=== PATIENT | female | born 1940 | race Caucasian/White ===

== ENCOUNTER 2019-06-28 22:45 | Emergency (ER) | payer MEDICARE ==
[~2019-06-28] VITALS: Ht 160 cm; Wt 47.6 kg
--- NOTE | 2019-06-28 22:51 | NUR ---
LACERATION NOTED ON R HAND. AWAITING MD FOR EVAL.
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
--- NOTE | 2019-06-28 23:02 | NUR ---
AT BED SIDE
[2019-06-28] MEDS ORDERED: KETOROLAC TROMETHAMINE INJ 30 MG/ML VIAL ONE (23:10)
[2019-06-28] MEDS ORDERED: LIDOCAINE 2%-EPI 1:100,000 30 ML VIAL ONE (23:10)
[2019-06-28] MEDS ORDERED: BACI/NEOM/POLY B OINT PKT 1 UDPKT PACKET ONE (23:10)
[2019-06-28] MEDS ORDERED: HYDROCODONE/APAP 5/325MG 1 EACH TABLET ONE (23:11)
--- NOTE | 2019-06-28 23:17 | NUR ---
XRAY AT BEDSIDE
[2019-06-28] MEDS ORDERED: HYDROCODONE/APAP 5/325MG 1 EACH TABLET PO ONE (23:30)
[2019-06-28] MEDS ORDERED: KETOROLAC TROMETHAMINE INJ 30 MG/ML VIAL IM ONE (23:30)
[2019-06-28] MEDS ORDERED: LIDOCAINE 2%-EPI 1:100,000 30 ML VIAL TP ONE (23:30)
[2019-06-28] MEDS ORDERED: BACI/NEOM/POLY B OINT PKT 1 UDPKT PACKET TP ONE (23:30)
--- NOTE | 2019-06-29 00:08 | NUR ---
Patient is resting comfortably in bed. Easily aroused. VSS.
[2019-06-29] MEDS ORDERED: HYDROCODONE/APAP 5/325MG 1 EACH TABLET PO ONE (01:30)
[2019-06-29] MEDS ORDERED: HYDROCODONE/APAP 5/325MG 1 EACH TABLET ONE (01:37)
--- NOTE | 2019-06-29 01:47 | NUR ---
Patient discharged to home in stable condition. Written and verbal after care instructions given. Patient verbalizes understanding of instruction. pt ambulatory with a steady gait.
[2019-06-29 01:48] VITALS: BP 132/76
== END 2019-06-29 01:49 | disposition home or self-care (01) ==
LOC: ER 22:47
DX: S61.411A Laceration without foreign body of right hand, initial encounter (principal); S20.211A Contusion of right front wall of thorax, initial encounter; E78.5 Hyperlipidemia, unspecified; Z98.890 Other specified postprocedural states; V49.49XA Driver injured in collision with other motor vehicles in traffic accident, initial encounter; Y93.89 Activity, other specified; Y92.488 Other paved roadways as the place of occurrence of the external cause; Y99.8 Other external cause status
CPT/HCPCS: 12002; 71045; 96372; 99284; J1885; J3490

== ENCOUNTER 2020-04-21 08:50 | Outpatient (CLI) | payer MEDICARE, BC ==
[2020-04-21 09:56] LABS: BASOPHILS % (AUTO) 1.1 % (0.0-2.0); EOSINOPHILS % (AUTO) 1.8 % (0.0-6.0); HEMATOCRIT 41 % (33-45); HEMOGLOBIN 12.9 g/dL (11.5-14.8); LYMPHOCYTES # (AUTO) 1.2 /CMM (0.8-4.8); LYMPHOCYTES % (AUTO) 30.7 % (20.0-44.0); MEAN CORPUSCULAR HGB CONC 32 g/dl (31.0-36.0); MEAN CORPUSCULAR VOLUME 90 fL (82-100); MONOCYTES # (AUTO) 0.3 /CMM (0.1-1.30); MONOCYTES % (AUTO) 8.7 % (2.0-12.0); NEUTROPHILS # (AUTO) 2.3 /CMM (1.8-8.9); NEUTROPHILS % (AUTO) 57.7 % (43.0-81.0); PLATELET COUNT (AUTO) 206 /CMM (150-450); RED BLOOD CELL COUNT(AUTO) 4.51 MIL/uL (4.0-5.2)
[2020-04-21 10:11] LABS: ALBUMIN 3.5 g/dL (3.4-5.0); BILIRUBIN,TOTAL 0.4 mg/dL (0.2-1.0); CREATININE 0.9 mg/dL (0.6-1.3); POTASSIUM 3.9 mmol/L (3.5-5.1)
== END 2020-04-21 23:59 | disposition home or self-care (01) ==
LOC: MSC 08:50
PROVIDERS: ATTEND Internal Medicine
DX: M81.0 Age-related osteoporosis without current pathological fracture (principal); E78.5 Hyperlipidemia, unspecified; D72.819 Decreased white blood cell count, unspecified; E03.9 Hypothyroidism, unspecified
CPT/HCPCS: 36415; 80053; 80061; 82607; 85025; 85652; G0463

== ENCOUNTER 2020-12-15 09:42 | Outpatient (CLI) | payer BC ==
[2020-12-15 10:41] LABS: BASOPHILS % (AUTO) 0.8 % (0.0-2.0); EOSINOPHILS % (AUTO) 1.7 % (0.0-6.0); HEMATOCRIT 40 % (33-45); HEMOGLOBIN 12.9 g/dL (11.5-14.8); LYMPHOCYTES # (AUTO) 1.1 /CMM (0.8-4.8); LYMPHOCYTES % (AUTO) 22.3 % (20.0-44.0); MEAN CORPUSCULAR HGB CONC 32 g/dl (31.0-36.0); MEAN CORPUSCULAR VOLUME 90 fL (82-100); MONOCYTES # (AUTO) 0.4 /CMM (0.1-1.30); NEUTROPHILS # (AUTO) 3.2 /CMM (1.8-8.9); NEUTROPHILS % (AUTO) 66.2 % (43.0-81.0); PLATELET COUNT (AUTO) 214 /CMM (150-450); WHITE BLOOD COUNT (AUTO) 4.8 K/uL (4.3-11.0)
[2020-12-15 11:23] LABS: ALBUMIN 3.4 g/dL (3.4-5.0); BILIRUBIN,TOTAL 0.2 mg/dL (0.2-1.0); CREATININE 0.9 mg/dL (0.6-1.3); MAGNESIUM 1.8 mg/dL (1.8-2.4); POTASSIUM 4.1 mmol/L (3.5-5.1); TOTAL PROTEIN, SERUM 7.1 g/dL (6.4-8.2)
[2020-12-15 12:01] LABS: THYROID STIMULATING HORMONE 3.941 uIU/mL (0.358-3.74)
== END 2020-12-15 23:59 | disposition home or self-care (01) ==
LOC: MSC 09:42
PROVIDERS: ATTEND Internal Medicine
DX: Z00.00 Encounter for general adult medical examination without abnormal findings (principal); R42 Dizziness and giddiness; M81.0 Age-related osteoporosis without current pathological fracture; E03.9 Hypothyroidism, unspecified; E78.5 Hyperlipidemia, unspecified; D72.819 Decreased white blood cell count, unspecified; Z79.899 Other long term (current) drug therapy
CPT/HCPCS: 36415; 80053-TC; 82607-TC; 83735-TC; 84443-TC; 85025-TC; 85652-TC